=== PATIENT | female | born 1955 | race Caucasian/White ===

== ENCOUNTER → 2018-02-27 | Outpatient (CLI) | payer OTHER ==
[~2018-02-27] MED LIST: BUPR100T11 PO; FLUV100C2 PO; FURO20TA3 PO; PANT40TA5 PO
== END | disposition home or self-care (01) ==
LOC: CVU 12:25
PROVIDERS: ATTEND Internal Medicine Cardiovascular Disease
DX: I34.0 Nonrheumatic mitral (valve) insufficiency (principal); M32.9 Systemic lupus erythematosus, unspecified; R55 Syncope and collapse
CPT/HCPCS: 93225; 93226; 93306

== ENCOUNTER → 2018-06-03 | Outpatient (CLI) | payer OTHER ==
[2018-06-03 11:17] LABS: BASOPHILS # (AUTO) 0.04 x10^3/uL (0-0.1); BASOPHILS % (AUTO) 1 % (0-1); EOSINOPHILS # (AUTO) 0.19 x10^3/uL (0-0.4); EOSINOPHILS % (AUTO) 3 % (1-7); LYMPHOCYTES # (AUTO) 1.46 x10^3/uL (1-3.4); LYMPHOCYTES % (AUTO) 25 % (22-44); MD NO; MEAN CORPUSCULAR HEMOGLOBIN 29.8 pg (27.0-34.8); MEAN CORPUSCULAR HGB CONC 33.9 g/dL (32.4-35.8); MEAN CORPUSCULAR VOLUME 87.9 fL (80-100); MONOCYTES # (AUTO) 0.33 x10^3/uL (0.2-0.8); MONOCYTES % (AUTO) 6 % (2-9); NEUTROPHILS # (AUTO) 3.87 x10^3/uL (1.8-6.8); NEUTROPHILS % (AUTO) 66 % (42-75); PLATELET COUNT 180 x10^3/uL (130-400); RED CELL DISTRIBUTION WIDTH 14.5 % (9.6-15.2)
[2018-06-03 11:22] LABS: ALANINE AMINOTRANSFERASE 24 U/L (12-78); ALBUMIN 3.6 g/dL (3.4-5.0); ANION GAP 6 mmol/L (5-15); CALCIUM 8.8 mg/dL (8.5-10.1); CHLORIDE 109 mmol/L (98-107); CREATININE 0.88 mg/dL (0.55-1.02)
[2018-06-03 11:25] LABS: ALKALINE PHOSPHATASE 70 U/L (45-117); BILIRUBIN,TOTAL 0.5 mg/dL (0.2-1.0); TOTAL PROTEIN 6.7 g/dL (6.4-8.2)
== END | disposition home or self-care (01) ==
LOC: LAB 10:52
PROVIDERS: ATTEND Family Medicine
DX: Z00.01 Encounter for general adult medical examination with abnormal findings (principal); I10 Essential (primary) hypertension; E55.9 Vitamin D deficiency, unspecified; R53.83 Other fatigue
CPT/HCPCS: 36415; 80053; 82306; 85025

== ENCOUNTER → 2018-08-29 | Outpatient (CLI) | payer OTHER | END | disposition home or self-care (01) | LOC: LAB 07:54 | PROVIDERS: ATTEND Naturopath | DX: I73.00 Raynaud's syndrome without gangrene (principal); F41.9 Anxiety disorder, unspecified; R53.83 Other fatigue; M32.0 Drug-induced systemic lupus erythematosus | CPT/HCPCS: 36415; 81291; 82533; 82626 ==

== ENCOUNTER → 2018-09-22 | Outpatient (CLI) | payer OTHER ==
[2018-09-22 07:59] LABS: BASOPHILS # (AUTO) 0.03 x10^3/uL (0-0.1); BASOPHILS % (AUTO) 0 % (0-1); EOSINOPHILS # (AUTO) 0.13 x10^3/uL (0-0.4); EOSINOPHILS % (AUTO) 2 % (1-7); LYMPHOCYTES # (AUTO) 1.47 x10^3/uL (1-3.4); LYMPHOCYTES % (AUTO) 25 % (22-44); MD NO; MEAN CORPUSCULAR HEMOGLOBIN 29.6 pg (27.0-34.8); MEAN CORPUSCULAR HGB CONC 33.6 g/dL (32.4-35.8); MEAN CORPUSCULAR VOLUME 88.1 fL (80-100); MEAN PLATELET VOLUME 10.8 fL (7.4-10.4); MONOCYTES # (AUTO) 0.51 x10^3/uL (0.2-0.8); MONOCYTES % (AUTO) 9 % (2-9); NEUTROPHILS # (AUTO) 3.82 x10^3/uL (1.8-6.8); NEUTROPHILS % (AUTO) 64 % (42-75); PLATELET COUNT 201 x10^3/uL (130-400); RED BLOOD COUNT 5.45 x10^6/uL (3.82-5.3); RED CELL DISTRIBUTION WIDTH 15.2 % (9.6-15.2)
[2018-09-22 08:02] LABS: ALANINE AMINOTRANSFERASE 24 U/L (12-78); ANION GAP 9 mmol/L (5-15); CALCIUM 9.3 mg/dL (8.5-10.1); CHLORIDE 105 mmol/L (98-107)
[2018-09-22 08:11] LABS: ALKALINE PHOSPHATASE 76 U/L (45-117); BILIRUBIN,TOTAL 0.7 mg/dL (0.2-1.0); CHOL/HDL RATIO 2.1; CHOLESTEROL, TOTAL 194 mg/dL (140-239); CREATININE 0.99 mg/dL (0.55-1.02); FREE T4 (FREE THYROXINE) 1.21 ng/dL (0.76-1.46); HDL CHOL % 47 % (28-40); HDL CHOLESTEROL (DIRECT) 92 mg/dL (40-60); LDL CHOLESTEROL,CALCULATED 89 mg/dL (54-169); TRIGLYCERIDES 63 mg/dL (50-200); VLDL CHOLESTEROL 13 mg/dL (0-25)
== END | disposition home or self-care (01) ==
LOC: LAB 07:36
PROVIDERS: ATTEND Naturopath
DX: I10 Essential (primary) hypertension (principal); R00.2 Palpitations; R53.83 Other fatigue; Z82.49 Family history of ischemic heart disease and other diseases of the circulatory system
CPT/HCPCS: 36415; 80053; 80061; 82306; 84439; 84443; 85025; 86376

== ENCOUNTER → 2019-02-13 | Outpatient (CLI) | payer OTHER ==
[2019-02-13 09:23] LABS: BASOPHILS # (AUTO) 0.02 x10^3/uL (0-0.1); BASOPHILS % (AUTO) 0 % (0-1); EOSINOPHILS # (AUTO) 0.15 x10^3/uL (0-0.4); EOSINOPHILS % (AUTO) 2 % (1-7); LYMPHOCYTES # (AUTO) 1.41 x10^3/uL (1-3.4); LYMPHOCYTES % (AUTO) 21 % (22-44); MD NO; MEAN CORPUSCULAR HEMOGLOBIN 29.3 pg (27.0-34.8); MEAN CORPUSCULAR HGB CONC 32.8 g/dL (32.4-35.8); MEAN CORPUSCULAR VOLUME 89.4 fL (80-100); MEAN PLATELET VOLUME 10.7 fL (7.4-10.4); MONOCYTES # (AUTO) 0.36 x10^3/uL (0.2-0.8); MONOCYTES % (AUTO) 5 % (2-9); NEUTROPHILS # (AUTO) 4.94 x10^3/uL (1.8-6.8); NEUTROPHILS % (AUTO) 72 % (42-75); PLATELET COUNT 193 x10^3/uL (130-400); RED BLOOD COUNT 4.92 x10^6/uL (3.82-5.3)
[2019-02-13 09:31] LABS: ALANINE AMINOTRANSFERASE 19 U/L (12-78); ALBUMIN 3.7 g/dL (3.4-5.0); ANION GAP 7 mmol/L (5-15); CALCIUM 8.9 mg/dL (8.5-10.1); CHLORIDE 108 mmol/L (98-107)
[2019-02-13 09:58] LABS: ALKALINE PHOSPHATASE 63 U/L (45-117); BILIRUBIN,TOTAL 0.5 mg/dL (0.2-1.0); CREATININE 0.87 mg/dL (0.55-1.02); FREE T4 (FREE THYROXINE) 1.18 ng/dL (0.76-1.46); THYROID STIMULATING HORMONE 0.758 mIU/L (0.358-3.740); TOTAL PROTEIN 6.4 g/dL (6.4-8.2)
[2019-02-13 09:59] LABS: FOLATE LEVEL > 20.0 ng/mL (3.1-17.5)
== END | disposition home or self-care (01) ==
LOC: LAB 09:06
PROVIDERS: ATTEND Naturopath
DX: I10 Essential (primary) hypertension (principal); R53.83 Other fatigue
CPT/HCPCS: 36415; 80053; 82306; 82607; 82746; 84439; 84443; 85025

== ENCOUNTER → 2019-09-23 | Outpatient (CLI) | payer OTHER ==
[2019-09-23 07:36] LABS: MEAN CORPUSCULAR HEMOGLOBIN 30.3 pg (27.0-34.8); MEAN CORPUSCULAR HGB CONC 33.1 g/dL (32.4-35.8); MEAN CORPUSCULAR VOLUME 91.6 fL (80-100); PLATELET COUNT 196 x10^3/uL (130-400); RED BLOOD COUNT 4.84 x10^6/uL (3.82-5.3); RED CELL DISTRIBUTION WIDTH 14.2 % (9.6-15.2)
[2019-09-23 07:44] LABS: ALANINE AMINOTRANSFERASE 20 U/L (12-78); ALBUMIN 3.4 g/dL (3.4-5.0); CALCIUM 8.8 mg/dL (8.5-10.1); CREATININE 0.94 mg/dL (0.55-1.02)
[2019-09-23 07:55] LABS: ALKALINE PHOSPHATASE 62 U/L (45-117); BILIRUBIN,TOTAL 0.6 mg/dL (0.2-1.0); TOTAL PROTEIN 6.8 g/dL (6.4-8.2)
[2019-09-23 07:58] LABS: ANION GAP 7 mmol/L (5-15); CHLORIDE 107 mmol/L (98-107)
== END | disposition home or self-care (01) ==
LOC: LAB 07:19
PROVIDERS: ATTEND Naturopath
DX: R06.2 Wheezing (principal); Z88.0 Allergy status to penicillin
CPT/HCPCS: 36415; 80053; 83880; 84443; 85027

== ENCOUNTER 2019-11-09 12:42 | Inpatient (IN) | payer OTHER ==
[~2019-11-09] VITALS: Ht 170.2 cm; Wt 66.9 kg
[2019-11-09 13:15] VITALS: BP 150/94
[2019-11-09] MEDS ORDERED: ESCI10TA10 PO (13:43)
[2019-11-09 13:44] LABS: ANION GAP 7 mmol/L (5-15); CALCIUM 9.2 mg/dL (8.5-10.1); CHLORIDE 108 mmol/L (98-107); CHOLESTEROL, TOTAL 201 mg/dL (140-239); CREATININE 1.06 mg/dL (0.55-1.02); TRIGLYCERIDES 62 mg/dL (50-200); VLDL CHOLESTEROL 12 mg/dL (0-25)
[2019-11-09 13:53] LABS: HDL CHOL % 49 % (28-40); HDL CHOLESTEROL (DIRECT) 99 mg/dL (40-60); LDL CHOLESTEROL,CALCULATED 90 mg/dL (54-169); LDL/HDL RATIO 0.9 (0.5-3.0)
[2019-11-09] MEDS ORDERED: ENOXAPARIN 40 MG/0.4 ML SQ SCH (14:30)
[2019-11-09] MEDS ORDERED: DILTIAZEM 5 MG/ML, 5ML IVPush PRN (15:00)
[2019-11-09] MEDS: METOPROLOL TARTRATE 25 MG TABLET PO SCH ×2 (15:22→20:55)
[2019-11-09] MEDS: ESCITALOPRAM 10MG TABLET PO SCH (20:55)
[2019-11-09] MEDS: APIXABAN 5 MG TABLET PO SCH (20:55)
[2019-11-09] MEDS: SODIUM CHLORIDE FLUSH 10ML SYR IVF SCH (20:56)
[2019-11-09] MEDS: ZOLPIDEM 5MG TABLET PO PRN (21:03)
[2019-11-10 01:18] VITALS: BP 114/73
[2019-11-10] MEDS: METOPROLOL TARTRATE 25 MG TABLET PO SCH (03:24)
[2019-11-10 08:03] VITALS: BP 112/70
[2019-11-10] MEDS ORDERED: ESCITALOPRAM 10MG TABLET PO SCH (09:00)
[2019-11-10] MEDS: APIXABAN 5 MG TABLET PO SCH ×2 (09:24→20:07)
[2019-11-10] MEDS: FUROSEMIDE 20 MG TABLET PO SCH (09:24)
[2019-11-10] MEDS: SOTALOL 80MG TABLET PO SCH ×2 (09:24→18:07)
[2019-11-10] MEDS: SODIUM CHLORIDE FLUSH 10ML SYR IVF SCH ×2 (09:25→20:07)
[2019-11-10 13:50] VITALS: BP 98/66
[2019-11-10 20:03] VITALS: BP 116/75
[2019-11-10] MEDS: ESCITALOPRAM 10MG TABLET PO SCH (20:08)
[2019-11-10] MEDS: ZOLPIDEM 5MG TABLET PO PRN (21:06)
[2019-11-11] VITALS (7 sets, daily range): BP systolic 95–127; BP diastolic 61–77
[2019-11-11] MEDS: SOTALOL 80MG TABLET PO SCH ×2 (06:05→17:52)
[2019-11-11 07:01] LABS: BASOPHILS # (AUTO) 0.04 x10^3/uL (0-0.1); BASOPHILS % (AUTO) 1 % (0-1); EOSINOPHILS # (AUTO) 0.16 x10^3/uL (0-0.4); EOSINOPHILS % (AUTO) 3 % (1-7); LYMPHOCYTES # (AUTO) 1.46 x10^3/uL (1-3.4); LYMPHOCYTES % (AUTO) 31 % (22-44); MD NO; MEAN CORPUSCULAR HEMOGLOBIN 30.4 pg (27.0-34.8); MEAN CORPUSCULAR HGB CONC 33.2 g/dL (32.4-35.8); MEAN CORPUSCULAR VOLUME 91.6 fL (80-100); MEAN PLATELET VOLUME 11.3 fL (7.4-10.4); MONOCYTES # (AUTO) 0.44 x10^3/uL (0.2-0.8); MONOCYTES % (AUTO) 9 % (2-9); NEUTROPHILS # (AUTO) 2.57 x10^3/uL (1.8-6.8); NEUTROPHILS % (AUTO) 55 % (42-75); PLATELET COUNT 160 x10^3/uL (130-400); RED BLOOD COUNT 4.89 x10^6/uL (3.82-5.3); RED CELL DISTRIBUTION WIDTH 14.4 % (9.6-15.2)
[2019-11-11 07:20] LABS: CHLORIDE 111 mmol/L (98-107)
[2019-11-11 07:27] LABS: ANION GAP 3 mmol/L (5-15); CREATININE 0.94 mg/dL (0.55-1.02)
[2019-11-11] MEDS: APIXABAN 5 MG TABLET PO SCH ×2 (10:09→20:39)
[2019-11-11] MEDS: SODIUM CHLORIDE FLUSH 10ML SYR IVF SCH ×2 (10:09→20:38)
[2019-11-11] MEDS: FUROSEMIDE 20 MG TABLET PO SCH (10:09)
[2019-11-11] MEDS: ESCITALOPRAM 10MG TABLET PO SCH (20:39)
[2019-11-11] MEDS: ZOLPIDEM 5MG TABLET PO PRN (21:59)
[2019-11-12 04:00] VITALS: BP 113/68
[2019-11-12] MEDS: APIXABAN 5 MG TABLET PO SCH (08:10)
[2019-11-12] MEDS: SOTALOL 80MG TABLET PO SCH (08:10)
[2019-11-12 08:19] VITALS: BP 134/75
[2019-11-12] MEDS: SODIUM CHLORIDE FLUSH 10ML SYR IVF SCH (09:00)
[2019-11-12] MEDS ORDERED: SOTA80TA18 PO (12:37)
[2019-11-12] MEDS ORDERED: APIX5TAB PO (12:37)
[2019-11-12 13:08] VITALS: BP 139/75
== END 2019-11-12 14:10 | disposition home or self-care (01) | DRG 309 ==
LOC: 5SO 12:42 → EDSTATUS 16:00 → DCLOUNGE 11-12 14:00
PROVIDERS: ADMIT Internal Medicine Cardiovascular Disease; ATTEND Internal Medicine Cardiovascular Disease
DX: I48.0 Paroxysmal atrial fibrillation (principal); D68.69 Other thrombophilia; I07.1 Rheumatic tricuspid insufficiency; I10 Essential (primary) hypertension; I27.20 Pulmonary hypertension, unspecified; Z79.01 Long term (current) use of anticoagulants; Z87.891 Personal history of nicotine dependence; Z88.0 Allergy status to penicillin
CPT/HCPCS: 36415; 71046; 80048; 80061; 84439; 84443; 85014; 85018; 85025; 93005; 93306; G0378

== ENCOUNTER 2020-01-29 11:59 | Outpatient (CLI) | payer OTHER ==
[~2020-01-29 11:59] MED LIST changes: +APIX5TAB PO; +ESCI10TA10 PO; +REGADENOSON 0.4 MG/5 ML SYRINGE ONE; +SOTA80TA18 PO
== END 2020-01-29 23:59 | disposition home or self-care (01) ==
LOC: CFH 11:59
PROVIDERS: ATTEND Internal Medicine Cardiovascular Disease
DX: I48.0 Paroxysmal atrial fibrillation (principal)
CPT/HCPCS: 78452; 93017; A9502; J2785

== ENCOUNTER 2020-03-01 09:46 | Outpatient (CLI) | payer OTHER ==
[~2020-03-01 09:46] MED LIST changes: -REGADENOSON 0.4 MG/5 ML SYRINGE ONE
[2020-03-01 13:12] LABS: BASOPHILS # (AUTO) 0.03 x10^3/uL (0-0.1); BASOPHILS % (AUTO) 1 % (0-1); EOSINOPHILS # (AUTO) 0.12 x10^3/uL (0-0.4); EOSINOPHILS % (AUTO) 3 % (1-7); LYMPHOCYTES # (AUTO) 1.43 x10^3/uL (1-3.4); LYMPHOCYTES % (AUTO) 31 % (22-44); MD NO; MEAN CORPUSCULAR HEMOGLOBIN 30.7 pg (27.0-34.8); MEAN CORPUSCULAR HGB CONC 33.1 g/dL (32.4-35.8); MEAN CORPUSCULAR VOLUME 92.8 fL (80-100); MEAN PLATELET VOLUME 11.3 fL (7.4-10.4); MONOCYTES # (AUTO) 0.38 x10^3/uL (0.2-0.8); MONOCYTES % (AUTO) 8 % (2-9); NEUTROPHILS # (AUTO) 2.65 x10^3/uL (1.8-6.8); NEUTROPHILS % (AUTO) 57 % (42-75); PLATELET COUNT 160 x10^3/uL (130-400); RED BLOOD COUNT 4.98 x10^6/uL (3.82-5.3); RED CELL DISTRIBUTION WIDTH 15.9 % (9.6-15.2)
[2020-03-01 13:21] LABS: ALBUMIN 3.8 g/dL (3.4-5.0); CALCIUM 9.4 mg/dL (8.5-10.1)
[2020-03-01 13:25] LABS: ALANINE AMINOTRANSFERASE 17 U/L (12-78); ALKALINE PHOSPHATASE 54 U/L (45-117); BILIRUBIN,TOTAL 0.8 mg/dL (0.2-1.0); CREATININE 0.93 mg/dL (0.55-1.02)
[2020-03-01 13:30] LABS: ANION GAP 6 mmol/L (5-15); CHLORIDE 109 mmol/L (98-107)
[2020-03-01] MEDS ORDERED: OMNIPAQUE 350 MG/ML, 150 ML BOTTLE ONE (14:38)
== END 2020-03-01 23:59 | disposition home or self-care (01) ==
LOC: CFH 09:46
PROVIDERS: ATTEND Internal Medicine Cardiovascular Disease
DX: I48.0 Paroxysmal atrial fibrillation (principal); I47.1 Supraventricular tachycardia; R55 Syncope and collapse; J84.10 Pulmonary fibrosis, unspecified
CPT/HCPCS: 36415; 71046; 75572; 80053; 82565; 85025; Q9967

== ENCOUNTER 2020-03-04 06:47 | Observation (INO) | payer OTHER ==
[~2020-03-04] VITALS: Ht 170.2 cm; Wt 74.8 kg
[2020-03-04] MEDS ORDERED: SODIUM CHLORIDE 0.9% 1,000 ML IV SCH ×2 (07:02→07:30)
[2020-03-04] MEDS ORDERED: ASCO10004 PO (07:13)
[2020-03-04] MEDS ORDERED: Vitamin D PO (07:14)
[2020-03-04] MEDS ORDERED: CART1TAB5 PO (07:14)
[2020-03-04 07:16] VITALS: BP 172/89
[2020-03-04] MEDS ORDERED: LIDOCAINE 1%, 20ML ONE (07:43)
[2020-03-04] MEDS ORDERED: MIDAZOLAM 1 MG/ML, 2ML ONE (08:01)
[2020-03-04] MEDS ORDERED: FENTANYL PF 250 MCG/5ML ONE (08:02)
[2020-03-04] MEDS ORDERED: PHENYLEPHRINE 10 MG/ML ONE (08:03)
[2020-03-04] MEDS ORDERED: ROCURONIUM 10MG/ML,5ML ONE (08:05)
[2020-03-04] MEDS ORDERED: EPHEDRINE 50 MG/ML, 1ML ONE (08:21)
[2020-03-04] MEDS ORDERED: DEXAMETHASONE 4 MG/ML, 1ML ONE ×2 (08:53)
[2020-03-04] MEDS ORDERED: ONDANSETRON 2MG/ML, 2ML ONE ×2 (12:52)
[2020-03-04] MEDS ORDERED: FUROSEMIDE 40 MG/4 ML ONE (13:04)
[2020-03-04] MEDS ORDERED: APIXABAN 5 MG TABLET ONE (13:47)
[2020-03-04] MEDS ORDERED: ALBUTEROL SULFATE 2.5 MG/3 ML NPPB PRN (14:00)
[2020-03-04] MEDS ORDERED: LABETALOL 5MG/ML, 20ML IV PRN (14:00)
[2020-03-04] MEDS ORDERED: HYDROmorphone 2 MG/ML, 1ML IVPush PRN (14:00)
[2020-03-04] MEDS ORDERED: DIAZEPAM 5 MG/ML, 2ML IVPush PRN (14:00)
[2020-03-04] MEDS ORDERED: OXYcodone 5 MG/5 ML ORAL.SOL UDC PO PRN (14:00)
[2020-03-04] MEDS ORDERED: ACETAMINOPHEN 325 MG TABLET PO PRN (14:00)
[2020-03-04] MEDS ORDERED: PROMETHAZINE 25 MG/ML, 1ML IV PRN (14:00)
[2020-03-04] MEDS ORDERED: HALOPERIDOL 5 MG/ML IV PRN (14:00)
[2020-03-04] MEDS ORDERED: FENTANYL PF 100 MCG/2ML IV PRN (14:00)
[2020-03-04] MEDS ORDERED: hydrALAzine 20 MG/ML, 1ML IV PRN (14:00)
[2020-03-04] MEDS ORDERED: EPHEDRINE 50 MG/ML, 1ML IVPush PRN (14:00)
[2020-03-04] MEDS ORDERED: MIDAZOLAM 1 MG/ML, 2ML IV PRN (14:00)
[2020-03-04] MEDS ORDERED: ONDANSETRON ODT 8 MG PO PRN (14:00)
[2020-03-04] MEDS ORDERED: PROMETHAZINE 12.5 MG SUPP PR PRN (14:00)
[2020-03-04] MEDS ORDERED: ONDANSETRON 2MG/ML, 2ML IV PRN (14:00)
[2020-03-04] MEDS: APIXABAN 5 MG TABLET PO SCH ×2 (14:19→21:12)
[2020-03-04] MEDS ORDERED: MEPERIDINE/PF 25MG/ML,1ML ONE (14:21)
[2020-03-04] MEDS: MEPERIDINE/PF 25MG/ML,1ML IVPush PRN ×3 (14:23→15:33)
[2020-03-04 15:19] VITALS: BP 131/81
[2020-03-04] MEDS: ACETAMINOPHEN 325 MG TABLET PO PRN ×2 (16:13→22:37)
[2020-03-04] MEDS: SOTALOL 80MG TABLET PO SCH (17:41)
[2020-03-04 20:49] VITALS: BP 95/60
[2020-03-04] MEDS ORDERED: ESCITALOPRAM 10MG TABLET PO SCH (21:00)
[2020-03-04] MEDS ORDERED: APIXABAN 5 MG TABLET PO SCH ×3 (21:00)
[2020-03-04] MEDS: COLCHICINE 0.6 MG CAPSULE PO SCH (21:11)
[2020-03-04] MEDS ORDERED: TEMAZEPAM 15 MG CAPSULE PO PRN (23:30)
[2020-03-05 00:01] VITALS: BP 102/61
[2020-03-05] MEDS ORDERED: MORPHINE SULFATE 4 MG/ML, 1ML IVPush PRN (01:30)
[2020-03-05 06:12] VITALS: BP 115/72
[2020-03-05] MEDS: SOTALOL 80MG TABLET PO SCH (06:14)
[2020-03-05 07:23] VITALS: BP 115/74
[2020-03-05] MEDS ORDERED: COLC0.6C3 PO (08:51)
[2020-03-05] MEDS ORDERED: ASCORBIC ACID 500 MG TABLET PO SCH (09:00)
[2020-03-05] MEDS ORDERED: HYALUR PO SCH (09:00)
[2020-03-05] MEDS ORDERED: COLLAGEN PO SCH (09:00)
[2020-03-05] MEDS ORDERED: CHOLECALCIFEROL 400 UNITS TABLET PO SCH (09:00)
[2020-03-05] MEDS ORDERED: BOR PO SCH (09:00)
[2020-03-05] MEDS ORDERED: CARTILAGE PO SCH (09:00)
[2020-03-05] MEDS: APIXABAN 5 MG TABLET PO SCH (09:12)
[2020-03-05] MEDS: ACETAMINOPHEN 325 MG TABLET PO PRN (09:13)
[2020-03-05] MEDS: COLCHICINE 0.6 MG CAPSULE PO SCH (09:13)
== END 2020-03-05 11:25 | disposition home or self-care (01) ==
LOC: CACL 06:47 → ORIP 13:19 → 5SO 15:16
PROVIDERS: ADMIT Internal Medicine Cardiovascular Disease; ATTEND Internal Medicine Cardiovascular Disease
DX: I48.0 Paroxysmal atrial fibrillation (principal); I48.92 Unspecified atrial flutter; I34.0 Nonrheumatic mitral (valve) insufficiency; I10 Essential (primary) hypertension; I07.1 Rheumatic tricuspid insufficiency; Z87.891 Personal history of nicotine dependence; Z79.01 Long term (current) use of anticoagulants; Z88.0 Allergy status to penicillin; Z68.23 Body mass index [BMI] 23.0-23.9, adult
CPT/HCPCS: 85347; 93308; 93312; 93321; 93325; 93613; 93621; 93656; 93657; 93662; 96374; C1730; C1732; C1759; C1766; C1893; C1894; G0378; J1100; J1940; J2175; J2250; J2270; J2370; J2405; J3010; J3490